=== PATIENT | female | born 1960 | race Caucasian/White ===

== ENCOUNTER → 2023-09-20 06:21 | Day surgery (SDC) | payer BC, SELFPAY | LOC: GI 06:21 | PROVIDERS: ATTENDING PHYSICIAN Internal Medicine Gastroenterology; FAMILY PHYSICIAN Internal Medicine | DX: Z12.11 Encounter for screening for malignant neoplasm of colon (principal); K64.8 Other hemorrhoids | CPT/HCPCS: G0121 ==

== ENCOUNTER 2023-12-29 17:53 | Outpatient (RCR) | payer BC, SELFPAY | END 2023-12-29 23:59 | disposition home or self-care (01) | LOC: RPT 17:53 | PROVIDERS: ATTENDING PHYSICIAN Physical Medicine & Rehabilitation; FAMILY PHYSICIAN Internal Medicine | DX: M54.16 Radiculopathy, lumbar region (principal); M62.84 Sarcopenia; Z73.6 Limitation of activities due to disability | CPT/HCPCS: 97110; 97112; 97140; 97161 ==

== ENCOUNTER 2024-01-28 11:23 | Outpatient (RCR) | payer BC, SELFPAY | END 2024-01-28 23:59 | disposition home or self-care (01) | LOC: RPT 11:23 | PROVIDERS: ATTENDING PHYSICIAN Physical Medicine & Rehabilitation; FAMILY PHYSICIAN Internal Medicine | DX: M54.16 Radiculopathy, lumbar region (principal); M62.84 Sarcopenia; Z73.6 Limitation of activities due to disability | CPT/HCPCS: 97010; 97110; 97112; 97140 ==

== ENCOUNTER 2024-02-14 17:13 | Outpatient (RCR) | payer BC, SELFPAY | END 2024-02-14 23:59 | disposition home or self-care (01) | LOC: RPT 17:13 | PROVIDERS: ATTENDING PHYSICIAN Physical Medicine & Rehabilitation; FAMILY PHYSICIAN Internal Medicine | DX: M54.16 Radiculopathy, lumbar region (principal); M62.84 Sarcopenia; Z73.6 Limitation of activities due to disability | CPT/HCPCS: 97010; 97110; 97112; 97140 ==

== ENCOUNTER → 2025-06-19 10:32 | Outpatient (REF) | payer BC, SELFPAY | LOC: RAD 10:32 | PROVIDERS: ATTENDING PHYSICIAN Obstetrics & Gynecology; FAMILY PHYSICIAN Internal Medicine | DX: Z78.0 Asymptomatic menopausal state (principal) | CPT/HCPCS: 77080 ==